=== PATIENT | male | born 1970 | race Caucasian/White ===

== ENCOUNTER 2016-07-13 12:36 | Emergency (ER) | payer OTHER ==
[2016-07-13 13:35] LABS: BILIRUBIN NEGATIVE (NEGATIVE); BLOOD TRACE-LYSED Ery/uL (NEGATIVE); CLARITY CLEAR (CLEAR); COLOR YELLOW (YELLOW); GLUCOSE (U) NORMAL (NORMAL); KETONE (U) 1+ (SMALL) mg/dL (NEGATIVE); LEUKOCYTES NEGATIVE Leu/uL (NEGATIVE); NITRITE NEGATIVE (NEGATIVE); PROTEIN TRACE (LOW) mg/dL (NEGATIVE); SPECIFIC GRAVITY >=1.030 (1.001-1.030); UROBILINOGEN 0.2 mg/dL (0.2-1.0); pH 5.5 (5.0-9.0)
[2016-07-13 13:47] LABS: URINARY RBC RARE
[2016-07-13 13:48] LABS: AMORPHOUS URATES CRYSTALS TRACE; BACTERIA TRACE; BENZODIAZEPINES NEGATIVE (NEGATIVE); GRANULAR CASTS TRACE
[2016-07-13 13:49] LABS: AMPHETAMINES NEGATIVE (NEGATIVE); BARBITURATES NEGATIVE (NEGATIVE); COCAINE NEGATIVE (NEGATIVE); MARIJUANA (THC) POSITIVE (NEGATIVE); METHADONE NEGATIVE (NEGATIVE); TRICYCLIC ANTIDEPRESSANT NEGATIVE (NEGATIVE)
[2016-07-13 15:07] LABS: BASOPHIL 0.4 % (0-2); EOSINOPHIL 0.1 % (0-5); HGB 15.6 g/dl (13.2-18.0); LYMPHOCYTE 24.4 % (15-48); MCH 31.3 pg (25.0-31.0); MCHC 35.5 g/dL (32.0-36.0); MCV 88.2 fL (78.0-100.0); MONOCYTE 4.9 % (0-12); MPV 8.6 fL (6.0-9.5); NEUTROPHIL 70.2 % (41-80); PLT 286 K/uL (150-400); RBC 4.99 M/uL (4.70-6.00); RDW 14.9 % (11.5-14.0); WBC 9.6 K/uL (4.0-10.5)
[2016-07-13 15:22] LABS: INR 1.05 (0.9-1.2); PROTHROMBIN TIME 13.3 SECONDS (11.7-14.0); PTT 23.1 SECONDS (23.2-31.4)
[2016-07-13 16:51] LABS: ALBUMIN 4.7 g/dL (3.5-5.0); BILIRUBIN - TOTAL 0.3 mg/dL (0.1-1.0); CREATININE 0.9 mg/dL (0.7-1.2); GLOBULIN (CALCULATION) 2.5 g/dL (2.2-4.2); POTASSIUM 4.2 mmol/L (3.5-5.1); TOTAL PROTEIN 7.2 g/dL (6.4-8.3)
== END 2016-07-13 16:25 | disposition home or self-care (01) ==
LOC: FER 12:36
PROVIDERS: Nurse Practitioner
DX: F10.220 Alcohol dependence with intoxication, uncomplicated (principal); I10 Essential (primary) hypertension; F17.210 Nicotine dependence, cigarettes, uncomplicated; Y90.8 Blood alcohol level of 240 mg/100 ml or more
CPT/HCPCS: 36415; 80053; 80305; 81001; 85025; 85610; 85730; G0480

== ENCOUNTER 2020-05-23 05:34 | Inpatient (IN) | payer OTHER ==
[~2020-05-23 05:34] MED LIST: LIBRIUM25 MG PO
[2020-05-23 06:30] LABS: BASOPHIL 0.7 % (0-2); EOSINOPHIL 0.7 % (0-5); HCT 44.8 % (42.0-52.0); HGB 15.6 g/dl (13.2-18.0); LYMPHOCYTE 31.4 % (15-48); MCHC 34.8 g/dL (32.0-36.0); MCV 88.9 fL (78.0-100.0); MONOCYTE 7.9 % (0-12); MPV 8.8 fL (6.0-9.5); PLT 393 K/uL (150-400); RBC 5.04 M/uL (4.70-6.00); RDW 13.7 % (11.5-14.0); WBC 10.4 K/uL (4.0-10.5)
[2020-05-23 07:09] LABS: BAND 1 % (0-10); BASOPHIL(M) 1 % (0-2); LYMPHOCYTE(M) 29 % (15-48); MONOCYTE(M) 10 % (0-12); NEUTROPHILS(M) 61 % (41-80); NRBC 0; PLATELET ESTIMATE NORMAL; PLATELET MORPHOLOGY NORMAL; TOTAL CELL COUNT 200
[2020-05-23 07:22] LABS: ALBUMIN 4.1 g/dL (3.4-5.0); ALKALINE PHOSHATASE 94 U/L (46-116); ALT 35 U/L (16-63); AST 28 U/L (15-37); BILIRUBIN - TOTAL 0.4 mg/dL (0.2-1.0); BUN 15 mg/dL (7-18); CHLORIDE 100 mmol/L (98-107); CO2 (BICARBONATE) 21 mmol/L (21-32); CREATININE 0.94 mg/dL (0.67-1.17); GLOBULIN (CALCULATION) 3.3 g/dL; GLUCOSE 132 mg/dL (74-106); POTASSIUM 3.6 mmol/L (3.5-5.1); TOTAL PROTEIN 7.4 g/dL (6.4-8.2)
[2020-05-23 07:23] LABS: ACETAMINOPHEN (TYLENOL) < 0.2 ug/mL (10.0-30.0)
[2020-05-23 07:43] LABS: CORONAVIRUS 2019 SARS-COV-2 NEGATIVE (NEGATIVE); INFLUENZA A NAA NEGATIVE (NEGATIVE)
[2020-05-23 07:50] LABS: ECSTASY (MDMA) NEGATIVE (NEGATIVE); OXYCODONE NEGATIVE (NEGATIVE)
[2020-05-23 07:51] LABS: BARBITURATES NEGATIVE (NEGATIVE); MARIJUANA (THC) POSITIVE (NEGATIVE); METHADONE NEGATIVE (NEGATIVE); OPIATES NEGATIVE (NEGATIVE)
[2020-05-23 07:52] LABS: AMPHETAMINES NEGATIVE (NEGATIVE)
[2020-05-23 09:09] LABS: BILIRUBIN NEGATIVE (NEGATIVE); BLOOD NEGATIVE Ery/uL (NEGATIVE); COLOR YELLOW (YELLOW); GLUCOSE (U) NORMAL (NORMAL); LEUKOCYTES NEGATIVE Leu/uL (NEGATIVE); NITRITE NEGATIVE (NEGATIVE); PROTEIN NEGATIVE (NEGATIVE); SPECIFIC GRAVITY >=1.030 (1.001-1.030); UROBILINOGEN 0.2 mg/dL (0.2-1.0)
[2020-05-23 09:12] LABS: CLARITY CLOUDY (CLEAR)
[2020-05-23] MEDS ORDERED: PRINIVIL20 MG PO (16:06)
[2020-05-23] MEDS ORDERED: REMERON15 MG PO (16:08)
[2020-05-23] MEDS ORDERED: WELLBUTRIN SR150 MG PO (16:08)
[2020-05-23] MEDS ORDERED: NORVASC 10MG TA10 MG PO (16:08)
[2020-05-23] MEDS ORDERED: NEXIUM 24HR20 MG PO (16:09)
[2020-05-24] MEDS ORDERED: DIAZEPAM 5MG TAB5 MG PO (09:32)
--- NOTE | 2020-05-24 10:45 | NUR ---
PT LIVES ALONE; PT REPORTS HE IS INDEPENDENT [facility]; PLEASE ADVISE OF ANY DISCHARGE NEEDS
--- NOTE | 2020-05-24 10:46 | NUR ---
ATTEMPTED TO MAKE FOLLOW UP WITH PCP MOHAN LEY BUT COULD NOT REACH ANYONE. LEFT NUMBER TO CALL BACK TOO.
== END 2020-05-24 10:58 | disposition home or self-care (01) | DRG 897 ==
LOC: FER 05:34 → FTCU 13:43
PROVIDERS: Emergency Medicine; ADMIT Internal Medicine
DX: F10.139 Alcohol abuse with withdrawal, unspecified (principal); K21.9 Gastro-esophageal reflux disease without esophagitis; R51.9 Headache, unspecified; Z20.822 Contact with and (suspected) exposure to COVID-19; R56.9 Unspecified convulsions; Z87.891 Personal history of nicotine dependence
CPT/HCPCS: 36415; 70450; 71045; 80053; 80305; 81003; 93005; G0480; J1650; J1885; J2405; J3411; J3475; J7030; U0002

== ENCOUNTER 2020-12-06 15:40 | Inpatient (IN) | payer OTHER ==
[~2020-12-06] VITALS: Ht 182.9 cm; Wt 98.4 kg
[~2020-12-06 15:40] MED LIST changes: +DIAZEPAM 5MG TAB5 MG PO; +NEXIUM 24HR20 MG PO; +NORVASC 10MG TA10 MG PO; +PRINIVIL20 MG PO; +REMERON15 MG PO; +WELLBUTRIN SR150 MG PO
[2020-12-06 16:37] LABS: BASOPHIL 0.6 % (0-2); EOSINOPHIL 0.3 % (0-5); HCT 41.7 % (42.0-52.0); HGB 14.7 g/dl (13.2-18.0); LYMPHOCYTE 22.4 % (15-48); MCH 31.7 pg (25.0-31.0); MCHC 35.3 g/dL (32.0-36.0); MCV 89.9 fL (78.0-100.0); MONOCYTE 5.1 % (0-12); MPV 8.8 fL (6.0-9.5); NEUTROPHIL 71.1 % (41-80); NRBC 0; PLT 287 K/uL (150-400); RBC 4.64 M/uL (4.70-6.00); RDW 13.9 % (11.5-14.0); WBC 10.7 K/uL (4.0-10.5)
[2020-12-06 16:59] LABS: ALBUMIN 4.2 g/dL (3.4-5.0); BILIRUBIN - TOTAL 0.5 mg/dL (0.2-1.0); BUN/CREAT RATIO (CALC) 15.2 RATIO; CREATININE 1.38 mg/dL (0.67-1.17); GLOBULIN (CALCULATION) 3.4 g/dL; MAGNESIUM 1.5 mg/dL (1.8-2.4); POTASSIUM 4.7 mmol/L (3.5-5.1); TOTAL PROTEIN 7.6 g/dL (6.4-8.2)
[2020-12-06 17:04] LABS: LACTIC ACID 6.4 mmol/L (0.4-1.9)
[2020-12-06 19:31] LABS: BILIRUBIN NEGATIVE (NEGATIVE); BLOOD NEGATIVE Ery/uL (NEGATIVE); CLARITY CLEAR (CLEAR); COLOR YELLOW (YELLOW); GLUCOSE (U) NORMAL (NORMAL); LEUKOCYTES NEGATIVE Leu/uL (NEGATIVE); NITRITE NEGATIVE (NEGATIVE); PROTEIN TRACE (LOW) mg/dL (NEGATIVE); SPECIFIC GRAVITY >=1.030 (1.001-1.030); UROBILINOGEN 0.2 mg/dL (0.2-1.0)
[2020-12-06 19:33] LABS: AMPHETAMINES NEGATIVE (NEGATIVE); BARBITURATES NEGATIVE (NEGATIVE); ECSTASY (MDMA) NEGATIVE (NEGATIVE); MARIJUANA (THC) POSITIVE (NEGATIVE); METHADONE NEGATIVE (NEGATIVE); OPIATES NEGATIVE (NEGATIVE); OXYCODONE NEGATIVE (NEGATIVE)
[2020-12-07 07:27] LABS: BASOPHIL 0.5 % (0-2); EOSINOPHIL 3.3 % (0-5); HCT 38.8 % (42.0-52.0); HGB 13.4 g/dl (13.2-18.0); LYMPHOCYTE 38.9 % (15-48); MCH 31.7 pg (25.0-31.0); MCHC 34.5 g/dL (32.0-36.0); MCV 91.7 fL (78.0-100.0); MONOCYTE 11.1 % (0-12); MPV 8.9 fL (6.0-9.5); NEUTROPHIL 45.9 % (41-80); NRBC 0; PLT 225 K/uL (150-400); RBC 4.23 M/uL (4.70-6.00); RDW 14.1 % (11.5-14.0); WBC 7.6 K/uL (4.0-10.5)
[2020-12-07 07:37] LABS: INR 0.97 (0.9-1.2); PROTHROMBIN TIME 12.3 SECONDS (11.8-13.4); PTT 25.3 SECONDS (24.4-34.7)
[2020-12-07 08:10] LABS: ALBUMIN 3.4 g/dL (3.4-5.0); BILIRUBIN - TOTAL 0.5 mg/dL (0.2-1.0); CREATININE 0.95 mg/dL (0.67-1.17); GLOBULIN (CALCULATION) 2.7 g/dL; PHOSPHORUS 2.6 mg/dL (2.6-4.7); POTASSIUM 4.4 mmol/L (3.5-5.1); TOTAL PROTEIN 6.1 g/dL (6.4-8.2)
[2020-12-07 08:21] LABS: MAGNESIUM 2.3 mg/dL (1.8-2.4)
[2020-12-08] MEDS ORDERED: NALTREXONE HCL50 MG PO (10:28)
[2020-12-08] MEDS ORDERED: ATIVAN1 MG PO (10:28)
--- NOTE | 2020-12-08 10:59 | NUR ---
12/08/20 Mr. Escobedo will be discharged home. He will be paying the cab fare. [facility] will offer him a discount.
== END 2020-12-08 11:30 | disposition home or self-care (01) | DRG 897 ==
LOC: FER 15:40 → FTCU 12-07 00:43
PROVIDERS: Emergency Medicine; Nurse Practitioner; ADMIT Internal Medicine
PROC: HZ2ZZZZ Detoxification Services for Substance Abuse Treatment (ICD-10-PCS; principal; 2020-12-07)
DX: F10.139 Alcohol abuse with withdrawal, unspecified (principal); G40.89 Other seizures; Z20.822 Contact with and (suspected) exposure to COVID-19; I10 Essential (primary) hypertension; K21.9 Gastro-esophageal reflux disease without esophagitis; M06.9 Rheumatoid arthritis, unspecified; F41.9 Anxiety disorder, unspecified; F17.210 Nicotine dependence, cigarettes, uncomplicated; Z79.899 Other long term (current) drug therapy; Z98.890 Other specified postprocedural states
CPT/HCPCS: 36415; 71045; 80053; 80305; 81003; 82693; 83605; 83735; 84100; 84145; 84484; 85025; 85610; 85730; 87040; 93005; C9113; J0692; J1650; J1953; J2060; J2405; J3411; J3475; J7030; U0002

== ENCOUNTER 2020-12-22 10:27 | Emergency (ER) | payer OTHER ==
[~2020-12-22 10:27] MED LIST changes: +ATIVAN1 MG PO; +NALTREXONE HCL50 MG PO
[2020-12-22 11:18] LABS: BASOPHIL 1.1 % (0-2); EOSINOPHIL 1.7 % (0-5); HCT 44.6 % (42.0-52.0); HGB 15.6 g/dl (13.2-18.0); LYMPHOCYTE 39.1 % (15-48); MCH 31.7 pg (25.0-31.0); MCV 90.7 fL (78.0-100.0); MONOCYTE 6.4 % (0-12); MPV 8.5 fL (6.0-9.5); NEUTROPHIL 50.5 % (41-80); NRBC 0; PLT 413 K/uL (150-400); RBC 4.92 M/uL (4.70-6.00); WBC 8.2 K/uL (4.0-10.5)
[2020-12-22 12:24] LABS: BILIRUBIN NEGATIVE (NEGATIVE); BLOOD NEGATIVE Ery/uL (NEGATIVE); CLARITY CLEAR (CLEAR); COLOR YELLOW (YELLOW); GLUCOSE (U) NORMAL (NORMAL); LEUKOCYTES NEGATIVE Leu/uL (NEGATIVE); NITRITE NEGATIVE (NEGATIVE); PROTEIN NEGATIVE (NEGATIVE); SPECIFIC GRAVITY 1.025 (1.001-1.030); UROBILINOGEN 0.2 mg/dL (0.2-1.0)
[2020-12-22 12:29] LABS: BARBITURATES NEGATIVE (NEGATIVE); ECSTASY (MDMA) NEGATIVE (NEGATIVE); MARIJUANA (THC) POSITIVE (NEGATIVE); METHADONE NEGATIVE (NEGATIVE); OPIATES NEGATIVE (NEGATIVE)
[2020-12-22 12:30] LABS: AMPHETAMINES NEGATIVE (NEGATIVE); OXYCODONE NEGATIVE (NEGATIVE)
[2020-12-22 12:54] LABS: ALBUMIN 3.9 g/dL (3.4-5.0); BILIRUBIN - TOTAL 0.3 mg/dL (0.2-1.0); BUN/CREAT RATIO (CALC) 12.8 RATIO; CREATININE 1.09 mg/dL (0.67-1.17); GLOBULIN (CALCULATION) 3.4 g/dL; POTASSIUM 3.9 mmol/L (3.5-5.1); TOTAL PROTEIN 7.3 g/dL (6.4-8.2)
== END 2020-12-22 16:40 | disposition home or self-care (01) ==
LOC: FER 10:27
PROVIDERS: Emergency Medicine
DX: F10.129 Alcohol abuse with intoxication, unspecified (principal); R45.851 Suicidal ideations; I10 Essential (primary) hypertension; F17.210 Nicotine dependence, cigarettes, uncomplicated; Y90.8 Blood alcohol level of 240 mg/100 ml or more; Z20.822 Contact with and (suspected) exposure to COVID-19
CPT/HCPCS: 36415; 80053; 80305; 81003; 85025; G0480; J2405; J3411; J3475; J7030; U0002